=== PATIENT | female | born 1990 | race Caucasian/White ===

== ENCOUNTER 2017-11-17 19:54 | Emergency (ER) | payer SELFPAY ==
[2017-11-17 20:20] VITALS: O2SAT 99
--- NOTE | 2017-11-17 21:24 | C.PDOC ---
History Of Present Illness Patient presents to the ER with a complaint of body aches and SOB. Patient states she was diagnosed flu positive and strep throat, she was started on zithromax and tamiflu yesterday but states she doesn't feel better. Patient is currently speaking in complete sentences. Denies fever, chills, nausea, or vomiting. Time Seen by Provider: 11/17/17 21:24 Chief Complaint (Nursing): Shortness Of Breath History Per: Patient History/Exam Limitations: no limitations Onset/Duration Of Symptoms: Days Current Symptoms Are (Timing): Still Present Initiating Event: Upper Respiratory Illness Current Respiratory Medications: See Home Med List Severity: Mild Pain Scale Rating Of: 3 Associated Symptoms: Other ((+) Body aches, SOB. (-) Nausea, Vomiting). denies : Fever, Chills Reports Recently: Treated By A Physician Recent travel outside of the [facility]: No Additional History Per: Family Past Medical History Reviewed: Historical Data, Nursing Documentation, Vital Signs Vital Signs: Last Vital Signs Temp 99.3 F 11/17/17 20:14 Pulse 108 H 11/17/17 20:14 Resp 24 11/17/17 20:14 BP 125/86 11/17/17 20:14 Pulse Ox 99 11/17/17 21:46 Family History: States: No Known Family Hx - Social History Hx Alcohol Use: No Hx Substance Use: No - Immunization History Hx Tetanus Toxoid Vaccination: No Hx Influenza Vaccination: No Hx Pneumococcal Vaccination: No Review Of Systems Constitutional: Negative for: Fever, Chills Eyes: Negative for: Redness ENT: Positive for: Throat Pain. Negative for: Ear Pain Cardiovascular: Negative for: Chest Pain Respiratory: Positive for: Shortness of Breath Gastrointestinal: Negative for: Nausea, Vomiting Musculoskeletal: Positive for: Other (Body aches) Skin: Negative for: Rash Neurological: Negative for: Weakness Psych: Negative for: Anxiety Physical Exam - Physical Exam Appears: Non-toxic, No Acute Distress Skin: Warm, Dry Head: Normacephalic Eye(s): bilateral: Normal Inspection Ear(s): Bilateral: Normal Nose: Normal Oral Mucosa: Moist Throat: Erythema (Mild), No Exudate Neck: Trachea Midline, Supple Chest: Symmetrical, No Tenderness Cardiovascular: Rhythm Regular Respiratory: No Rales, No Rhonchi, No Wheezing Neurological/Psych: Oriented x3 Gait: Steady ED Course And Treatment O2 Sat by Pulse Oximetry: 99 (room air) Pulse Ox Interpretation: Normal Progress Note: Motrin and albuterol nebulizer administered. Reevaluation Time: 22:26 Reassessment Condition: Improved Disposition Counseled Patient/Family Regarding: Studies Performed, Diagnosis, Need For Followup - Disposition Referrals: [facility] [Outside] [facility] [Outside] Disposition: HOME/ ROUTINE Disposition Time: 21:24 Condition: FAIR Prescriptions: Albuterol HFA [Ventolin HFA 90 mcg/actuation (8 g)] 2 puff IH [id number] #1 puff Ibuprofen [Motrin Tab] 800 mg PO TID PRN #15 tab PRN Reason: Pain, Moderate (4-7) Instructions: Influenza (ED), Musculoskeletal Pain (ED) Forms: AppointmentCity ([place]) - Clinical Impression Clinical Impression: Influenza, Myalgia - Scribe Statement The provider has reviewed the documentation as recorded by the Scribe Oneal Martines All medical record entries made by the Scribe were at my direction and personally dictated by me. I have reviewed the chart and agree that the record accurately reflects my personal performance of the history, physical exam, medical decision making, and the department course for this patient. I have also personally directed, reviewed, and agree with the discharge instructions and disposition.
[2017-11-17] MEDS ORDERED: Albuterol-Ipratrop 3 mg / 0.5 (3 ml) UD ONE (21:51)
[2017-11-17] MEDS: Albuterol-Ipratrop 3 mg / 0.5 (3 ml) UD IH SCH (22:03)
[2017-11-17 22:58] VITALS: BP 108/74; PULSE 104; RESP 20; TEMP 98.9
== END 2017-11-17 22:40 | disposition home or self-care (01) ==
LOC: C.ER 19:54
DX: J11.1 Influenza due to unidentified influenza virus with other respiratory manifestations (principal); M79.1 Myalgia